=== PATIENT | female | born 1980 | race Caucasian/White ===

== ENCOUNTER 2022-06-08 19:13 | Emergency (ER) | payer OTHER, BC, SELFPAY ==
[2022-06-08 19:26] VITALS: BP 137/85; PULSE 77; RESP 16; TEMP 36.7; O2SAT 100; BMI 24.2
--- NOTE | 2022-06-08 20:02 | CRLHL7_ITS ---
For Patients: As a result of the Century Cures Act, medical imaging exams and procedure reports are released immediately into your electronic medical record. You may view this report before your referring provider. If you have questions, please contact your health care provider. INDICATION: Lower abdominal pain. TECHNIQUE: CT abdomen and pelvis acquired with 72 mL Isovue 370 IV contrast. Coronal and sagittal reformats were generated. COMPARISON: None. FINDINGS: Lower chest: Unremarkable. Liver: Unremarkable. Gallbladder and bile ducts: Unremarkable. No stones or inflammation. No biliary dilation. Spleen: Unremarkable. Pancreas: Unremarkable. Adrenal glands: Unremarkable. No nodules. Kidneys and Ureters: Unremarkable. No suspicious masses, stones, or hydronephrosis. Lymph Nodes and Retroperitoneum: Unremarkable. Vasculature: Unremarkable. GI tract: Unremarkable. Normal in caliber. Normal appendix. Peritoneum/Abdominal Wall: Unremarkable. No free air or free fluid. Pelvic Viscera: Intrauterine device in the endometrial canal. Left adnexal cystic lesion is probably a dominant follicle. Bladder: Unremarkable. Bones: Unremarkable for age. IMPRESSION: No significant CT abnormality or findings to explain the cause of the patient`s symptoms. Please note that all CT scans at this facility use dose modulation, iterative reconstruction, and/or weight-based dosing when appropriate to reduce radiation dose to as low as reasonably achievable. Dictated by Jamaal Frederick MD @ 06/08/2022 10:00:33 PM (Electronically Signed)
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
[2022-06-08] MEDS: HYDROmorphone 0.5 mg/0.5 ml inj IVP (20:23)
[2022-06-08] MEDS: ONDANSETRON 2 MG/ML inj 4 MG IVP (20:23)
[2022-06-08 20:39] LABS: Appearance Urine Clear (Clear); Bilirubin Urine Negative (Negative); Blood Urine Trace-intact (Negative); Color Urine Yellow (Yellow); Glucose Urine Negative (Negative); Ketones Urine 1+ (Negative); Leukocyte Esterase Urine 1+ (Negative); Nitrite Urine Negative (Negative); Protein Urine Negative (Negative)
[2022-06-08 20:42] LABS: Basophils Absolute Auto 0.01 K/uL (0.00-0.30); Basophils Percent Auto 0.2 % (0.0-3.0); Eosinophils Absolute Auto 0.02 K/uL (0.00-0.50); Eosinophils Percent Auto 0.4 % (0.0-7.0); Hemoglobin* 13.8 gm/dL (12.0-16.0); Immature Granulocytes Abs Auto 0.02 K/uL (0.00-0.30); Immature Granulocytes Pct Auto 0.4 %; Lymphocytes Absolute Auto 1.52 K/uL (0.90-2.90); Lymphocytes Percent Auto 28.4 % (20-44); Mean Corpuscular HGB Conc 33 gm/dL (32-36); Mean Corpuscular Hemoglobin 30 pg (26-34); Mean Corpuscular Volume 90 fL (80-100); Monocytes Percent Auto 6.7 % (0.0-11.0); Neutrophils Absolute Auto 3.42 K/uL (1.7-7.0); Neutrophils Percent Auto 63.9 % (42.0-72.0); Platelet Count* 130 K/uL (140-440); RDW Coefficient of Variation % 12.1 % (11.5-15.5); Red Blood Count 4.65 m/uL (4.00-5.20); White Blood Count* 5.35 K/uL (4.50-11.00)
[2022-06-08 20:42] LABS: HCG Qualitative* Negative (Negative)
[2022-06-08 20:50] LABS: RBC Urine 0-2 (0-2); Squamous Epithelial Cell Urine Few (None-Few)
[2022-06-08 20:53] LABS: Slide Review Reflex No
[2022-06-08 20:57] LABS: Chloride* 106 mmol/L (96-114); Potassium* 3.6 mmol/L (3.6-5.1); Sodium* 141 mmol/L (135-149)
[2022-06-08 21:00] LABS: Carbon Dioxide* 26 mmol/L (20-32); Creatinine* 0.7 mg/dL (0.5-1.5); Est. Creatinine Clearance* 97.01; Estimated Glomerular Filt Rate 110 ml/min
[2022-06-08 21:01] LABS: Blood Urea Nitrogen* 16 mg/dL (5-24); Glucose* 92 mg/dL (60-115)
[2022-06-08 21:40] VITALS: BP 106/65; PULSE 58; RESP 16; O2SAT 98
[2022-06-08 22:24] VITALS: BP 102/63; PULSE 98; RESP 16
--- NOTE | 2022-06-10 12:44 | ED.NURSE ---
Patient's , Joaquín, called to see how long patient should remain on Toradol and Flexeril. Spoke with patient who gave verbal permission to speak with . Encouraged them to reach out to PCP for ongoing symptoms or be re-evaluated in ED if they have concerns. Per MD note, take as needed. This was told to patient. All questions answered.
== END 2022-06-08 22:25 | disposition home or self-care (01) ==
PROVIDERS: Emergency Provider Emergency Medicine Emergency Medical Services
DX: S13.4XXA Sprain of ligaments of cervical spine, initial encounter (principal); S06.0X0A Concussion without loss of consciousness, initial encounter; R10.9 Unspecified abdominal pain; V43.62XA Car passenger injured in collision with other type car in traffic accident, initial encounter; Y93.9 Activity, unspecified; Y92.410 Unspecified street and highway as the place of occurrence of the external cause
CPT/HCPCS: 36415; 70450; 74177; 80048; 81001; 84703; 85025; 96374; 96375; 99285; J1170; J2405; Q9967

== ENCOUNTER 2022-08-22 14:30 | Outpatient (RCR) | payer OTHER, BC, SELFPAY | END 2022-12-27 23:59 | disposition home or self-care (01) | PROVIDERS: Visit Provider Family Medicine | DX: S06.0X0D Concussion without loss of consciousness, subsequent encounter (principal); Z51.89 Encounter for other specified aftercare | CPT/HCPCS: 97110; 97140; 97162; 97165; 97530 ==

== ENCOUNTER 2022-12-05 08:20 | Outpatient (CLI) | payer BC, SELFPAY | END 2022-12-05 08:21 | disposition home or self-care (01) | LOC: NFLDREF 12:25 | PROVIDERS: PCP Physician Assistant; Referring Provider Physician Assistant; Visit Provider Physician Assistant | DX: Z13.6 Encounter for screening for cardiovascular disorders (principal); Z13.1 Encounter for screening for diabetes mellitus; Z13.29 Encounter for screening for other suspected endocrine disorder | CPT/HCPCS: 80061; 82947; 84443 ==

== ENCOUNTER 2023-11-26 09:22 | Outpatient (CLI) | payer BC, SELFPAY | END 2023-11-26 09:23 | disposition home or self-care (01) | LOC: NFLDREF 09:23 | PROVIDERS: PCP Physician Assistant; Visit Provider Physician Assistant | DX: Z13.29 Encounter for screening for other suspected endocrine disorder (principal) | CPT/HCPCS: 84443 ==

== ENCOUNTER 2023-12-30 10:00 | Outpatient (RCR) | payer OTHER, BC, SELFPAY | END 2024-03-18 11:06 | disposition home or self-care (01) | PROVIDERS: PCP Physician Assistant; Visit Provider Family Medicine | DX: M54.12 Radiculopathy, cervical region (principal); S06.0X9D Concussion with loss of consciousness of unspecified duration, subsequent encounter; M79.601 Pain in right arm; M62.81 Muscle weakness (generalized); Z51.89 Encounter for other specified aftercare | CPT/HCPCS: 97110; 97140; 97161; 97165; 97530; 97535 ==

== ENCOUNTER 2024-04-09 11:00 | Outpatient (RCR) | payer BC, SELFPAY | END 2024-08-07 23:59 | disposition home or self-care (01) | PROVIDERS: Visit Provider Physician Assistant | DX: N39.3 Stress incontinence (female) (male) (principal); R27.8 Other lack of coordination; Z51.89 Encounter for other specified aftercare | CPT/HCPCS: 97110; 97140; 97162; 97535 ==

== ENCOUNTER 2024-09-11 14:30 | Outpatient (RCR) | payer OTHER, BC, SELFPAY | END 2024-12-14 15:12 | disposition home or self-care (01) | PROVIDERS: Visit Provider Student in an Organized Health Care Education/Training Program | DX: S16.1XXD Strain of muscle, fascia and tendon at neck level, subsequent encounter (principal); S06.0X9D Concussion with loss of consciousness of unspecified duration, subsequent encounter; Z51.89 Encounter for other specified aftercare | CPT/HCPCS: 97110; 97140; 97162 ==